=== PATIENT | male | born 2005 | race Caucasian/White ===

== ENCOUNTER 2024-07-14 01:16 | Emergency (ER) | payer OTHER, SELFPAY ==
[2024-07-14 01:16] VITALS: BMI 26.2
[2024-07-14 01:28] VITALS: BP 150/83
[2024-07-14 02:17] VITALS: BP 131/74
--- NOTE | 2024-07-14 02:26 | ED.GENMED ---
History of Present Illness
<DEIDRA Friedman - Last Filed: 07/14/24 04:33>
General
Chief Complaint: Skin Surface Trauma
Source: patient and family
Time Seen by Provider: 07/14/24 02:17
Nursing documentation reviewed up to this point in time: agreed with
History of Present Illness
History of Present Illness:
Pt is a 18 yo M who presents with his mother to the emergency department for a laceration. Pt states that he was ice skating and fell. The laceration is located on the posterior head. The laceration is not actively bleeding but noticeable spots of
dried blood on the back of the patient's shirt. Pt denies LOC, dizziness, BARILLAS, N/V, fever, chills, chest pain, shortness of breath.
Past History
<DEIDRA Friedman - Last Filed: 07/14/24 04:33>
Past History
ED Past Medical History: Other (Migraines)
ED Past Surgical History: None
Social History
Tobacco: Non-smoker
Alcohol: None
Drug: None
Personal: Single
Living: with roommate
Review of Systems
<DEIDRA Friedman - Last Filed: 07/14/24 04:33>
Review of Systems
Allergies reviewed?: Yes
Constitutional: Reports no symptoms
EENT: Reports no symptoms
Respiratory: Reports no symptoms
Cardiac: Reports no symptoms
ABD/GI: Reports no symptoms
Musculoskeletal: Reports no symptoms
Skin: Reports other (laceration posterior head)
Neurological: Reports no symptoms
Phy Exam
<DEIDRA Friedman - Last Filed: 07/14/24 04:33>
General Physical Exam
General Presentation: no apparent distress
General age: appears stated age
General Skin: warm
General Habitus: normal
General Mental: appears intoxicated
General Hydration: appears well hydrated
Cardiovascular Exam
Cardiovascular Exam: regular rate/rhythm
Pulmonary Exam
Pulmonary Exam: lungs clear
Neurological Exam
Neurological Exam: appears intoxicated
Skin Exam
Skin Exam: laceration
Course
<DEIDRA Friedman - Last Filed: 07/14/24 04:33>
Orders/Labs/Results
Orders:
Orders
07/14/24 03:00
CT Head W/o Iv Contrast Urgent
Comment:
Reason For Exam: post head trauma, intoxicated
Vital Signs
Initial and Last Documented VS:
Initial Vital Signs
Temp Pulse Resp BP Pulse Ox
98.2 F 104 20 150/83 99
07/14/24 01:28 07/14/24 01:28 07/14/24 01:28 07/14/24 01:28 07/14/24 01:28
Last Documented Vital Signs
Temp Pulse Resp BP Pulse Ox
98.2 F 104 20 124/75 98
07/14/24 01:28 07/14/24 01:28 07/14/24 01:28 07/14/24 03:00 07/14/24 03:00
<Marilyn Zafar DO - Last Filed: 07/14/24 04:25>
Orders/Labs/Results
Orders:
Orders
07/14/24 03:00
CT Head W/o Iv Contrast Urgent
Comment:
Reason For Exam: post head trauma, intoxicated
Vital Signs
Initial and Last Documented VS:
Initial Vital Signs
Temp Pulse Resp BP Pulse Ox
98.2 F 104 20 150/83 99
07/14/24 01:28 07/14/24 01:28 07/14/24 01:28 07/14/24 01:28 07/14/24 01:28
Last Documented Vital Signs
Temp Pulse Resp BP Pulse Ox
98.2 F 104 20 124/75 98
07/14/24 01:28 07/14/24 01:28 07/14/24 01:28 07/14/24 03:00 07/14/24 03:00
Procedures
<Marilyn Zafar DO - Last Filed: 07/14/24 04:25>
Laceration Closure
Left Occipital:
Status of Wound: clean
Size of Wound in cm: 3
Description of Wound Edges: sharp
Preparation: cleaned with saline and cleaned with Betadine
Anesthesia: 1% Lidocaine with epi and added Na Bicarb to local
Revision/Debridement: routine- no revision
Wound exploration: explored to base- no FB and no tendon involvement
Type of Closure: single layer closure
Skin Closure Material: skin brayden
Number of sutures: 4
<DEIDRA Friedman - Last Filed: 07/14/24 04:33>
*Critical Care Note
Total Time (30-74mins, 75-104mins- exclusive of procedures): Not Applicable
<DO Alice Flores Last Filed: 07/14/24 04:25>
*Radiology
Radiology exam reviewed: radiology read reviewed (CT of the head is unremarkable)
*Pulse Oximetry
Patient hypoxic: no
ED Attending Note
<DEIDRA Friedman - Last Filed: 07/14/24 04:33>
-
Portions of this chart may have been created with voice recognition software.� Occasional wrong word or��sound alike� substitutions may have occurred due to the inherent limitations of voice recognition software.
<Marilyn Zafar DO - Last Filed: 07/14/24 04:25>
ED Attending Note
Patient seen and examined by attending physician: Yes
I performed the substantive portion of visit, reviewed & personally made and approve the management plan that is documented in note by myself or NINFA.: Yes
ED Attending Note:
This is a 18-year-old college student who was brought to the ED by mom after he returned home after being out tonight with friends. He admits to drinking alcohol and was apparently ice-skating, admits to falling several times, struck the back of
his head and is noted to have a laceration occipital scalp. He denies loss of consciousness, denies headache, denies neck nor back pain. He has had no nausea or vomiting, no dizziness nor lightheadedness, no chest nor abdominal pain.
He admits to consumption of alcohol tonight. Denies drug use.
He takes no medicines on a daily basis.
He is not immunized and declines Tdap.
TRAUMA EXAM:
VITAL SIGNS: Vital signs reviewed, cooperative
DISTRESS: 18-year-old male appears his stated age, awake and alert, appears moderately intoxicated but cooperative. In no distress.
EYES: Pupils reactive, no orbital trauma
NOSE: No deformity or epistaxis
FACE AND SCALP: No facial trauma, external canals no blood. There is a 2.5 cm laceration occipital scalp, subcutaneous depth. No active bleeding. Minimal local tenderness to palpation.
NECK: Supple, no midline bony tenderness, full cervical range of motion without difficulty nor pain.
BACK: Back nontender, pelvis stable to compression
RESPIRATORY: No distress, breath sounds normal, no tender chest wall
CARDIAC: No murmur, pulses equal and strong
ABDOMEN: Soft nontender bowel sounds normal
SKIN: Warm and dry, normal color. Good turgor.
EXTREMITIES: Nontender
NEUROLOGICAL: Alert, oriented x 3, no motor deficits.
PSYCH: Moderately intoxicated, cooperative.
Due to acute intoxication, coupled with head injury will check CT of the head assess for potential intracranial injury.
Patient/mom declined Tdap.
Scalp laceration will require staple repair.
Discharge Plan
Departure
Patient Disposition: Home (Routine Discharge)
Date of Disposition: 07/14/24
Time of Disposition: 04:17
Patient with high blood pressure during this ER visit?: No
Condition: Good
Discharge Problem:
Laceration of occipital region of scalp
Instructions: Laceration Repair With [place] (DC)
Prescriptions:
No Action
No Current Medications
0
Referrals:
Armond Rich MD [Family Provider] - Follow up in 5-7 days
Interventions
Interventions:
*Risk Screen - Suicide Last Done: 07/14/24 01:28
*General Assessment Last Done: 07/14/24 01:28
*Neglect/Abuse Screening Last Done: 07/14/24 01:28
*ED COVID-19 Vaccine History Last Done: 07/14/24 01:33
ED- Neurological Assessment Last Done: 07/14/24 02:21
ED-Skin Assessment Last Done: 07/14/24 02:21
Discharge Date and Time
Print Language: CYMRO
[2024-07-14 03:00] VITALS: BP 124/75
[2024-07-14 04:34] VITALS: BP 119/72
== END 2024-07-14 04:36 | disposition home or self-care (01) ==
LOC: EMR 01:16
PROVIDERS: EMERGENCY PHYSICIAN Emergency Medicine; FAMILY PHYSICIAN Family Medicine
DX: S01.01XA Laceration without foreign body of scalp, initial encounter (principal); V00.211A Fall from ice-skates, initial encounter; Y93.21 Activity, ice skating
CPT/HCPCS: 99284; 12002; 70450

== ENCOUNTER 2024-08-19 14:29 | Emergency (ER) | payer OTHER, SELFPAY ==
[2024-08-19 14:39] VITALS: BP 149/96
[2024-08-19 14:59] LABS: % Basophils 0.2 % (0-2); % Eosinophils 0.6 % (0-6); % Immature Granulocytes 0.2 % (0-0.5); % Lymphocytes 10.7 % (20.5-51.1); % Neutrophils 80.3 % (42.2-75.2); Absolute Eosinophils 0.1 10^3/uL (0-0.7); Absolute Monocytes 0.7 10^3/uL (0.1-0.6); Absolute Neutrophils 7.1 10^3/uL (1.4-6.5); Hematocrit 44.6 % (39.0-52.0); Hemoglobin 15.4 g/dL (13.0-18.0); Mean Corp Hgb Conc. 34.5 g/dL (33.0-37.0); Mean Corpuscular Volume 89.9 fL (80.0-94.0); Mean Platelet Volume 9.4 fL (7.4-10.4); Nucleated Red Blood Cells % 0 % (-); Platelet Count 228 10^3/uL (130-400); Red Blood Cell Count 4.96 10^6/uL (4.70-6.10); White Blood Cell Count 8.9 10^3/uL (4.8-10.8)
[2024-08-19 15:19] LABS: ALT (SGPT) 20 U/L (0-50); AST (SGOT) 26 U/L (17-59); Albumin 4.8 g/dl (3.5-5.0); Alkaline Phosphatase 105 U/L (38-126); Blood Urea Nitrogen 12 mg/dl (9-20); Calcium 9.4 mg/dl (8.4-10.2); Carbon Dioxide 25 mmol/L (22-30); Chloride 100 mmol/L (98-107); Glucose 99 mg/dl (70-99); Potassium 4.5 mmol/L (3.5-5.1); Sodium 138 mmol/L (135-145); Total Bilirubin 0.6 mg/dl (0.2-1.3); Total Protein 7.4 g/dl (6.3-8.2); eGFR > 60.00
--- NOTE | 2024-08-19 18:15 | ED.SKININJ ---
HPI-Injury
General
Chief Complaint: Skin Problem
Time Seen by Provider: 08/19/24 18:03
Past History
Past History
ED Past Medical History: Other (Migraines)
ED Past Surgical History: None
Social History
Tobacco: Non-smoker
Alcohol: None
Drug: None
Personal: Single
Living: with roommate
Skin Exam
Abrasion
Right Fourth Finger:
Description of abrasion: superfical/clean
Course
Orders/Labs/Results
Orders:
Orders
08/19/24 14:38
Hand, Right 3 View [CR Hand - Right Min 3 Views] Urgent
Comment:
Reason For Exam: redness to right ring finger
08/19/24 14:49
Complete Blood Count/With Diff Urgent
Comprehensive Metabolic Panel Urgent
08/19/24 18:14
Cephalexin Monohydrate [Keflex] 500 mg PO NOW STA
Abnormal Lab Results
08/19/24
14:49
Absolute Neuts (auto) 7.1 H 10^3/uL
(1.4-6.5)
Absolute Lymphs (auto) 1.0 L 10^3/uL
(1.2-3.4)
Absolute Monos (auto) 0.7 H 10^3/uL
(0.1-0.6)
Neutrophils % 80.3 H %
(42.2-75.2)
Lymphocytes % 10.7 L %
(20.5-51.1)
08/19/24 14:49
08/19/24 14:49
Vital Signs
Initial and Last Documented VS:
Initial Vital Signs
Temp Pulse Resp BP Pulse Ox
99.2 F 112 18 149/96 98
08/19/24 14:39 08/19/24 14:39 08/19/24 14:39 08/19/24 14:39 08/19/24 14:39
Last Documented Vital Signs
Temp Pulse Resp BP Pulse Ox
99.2 F 112 18 149/96 98
08/19/24 14:39 08/19/24 14:39 08/19/24 14:39 08/19/24 14:39 08/19/24 14:39
ED Attending Note
-
Portions of this chart may have been created with voice recognition software.� Occasional wrong word or��sound alike� substitutions may have occurred due to the inherent limitations of voice recognition software.
Discharge Plan
Departure
Patient Disposition: Home (Routine Discharge)
Date of Disposition: 08/19/24
Time of Disposition: 18:15
Patient with high blood pressure during this ER visit?: No
Condition: Good
Covid-19: Not Applicable
Discharge Problem:
Cellulitis of finger
Instructions: Wound Care (DC), Cellulitis (Skin Infection), Adult (DC)
Prescriptions:
New
cephalexin 500 mg capsule
500 mg PO Q6H 7 Days Qty: 28 0RF
Activity Restrictions/Additional Instructions:
Follow up with your family doctor. Return to the emergency department immediately for fever/chills, increasing pain/redness/swelling to finger, or for any further concerns. Warm soaks to finger 15-20 minutes at a time, 4-5 times daily.
Interventions
Interventions:
*Risk Screen - Suicide Last Done: 08/19/24 14:39
*General Assessment Last Done: 08/19/24 14:39
*Neglect/Abuse Screening Last Done: 08/19/24 18:34
ED- Fall Risk Assessment Last Done: 08/19/24 18:34
*ED COVID-19 Vaccine History Last Done: 08/19/24 18:34
*Nursing Disposition Last Done: 08/19/24 18:34
ED-Skin Assessment Last Done: 08/19/24 18:34
Discharge Date and Time
Discharge Date/Time: 08/19/24 18:35
Print Language: GREENLANDIC
--- NOTE | 2024-08-19 18:18 | ED.SKININJ ---
HPI-Injury
General
Chief Complaint: Skin Problem
Source: patient
Exam Limitations: none
Time Seen by Provider: 08/19/24 18:03
Nursing documentation reviewed up to this point in time: agreed with
History of Present Illness-Injury
Is this injury a work related problem?: No
Is pt an associate of [facility]/[place]?: No
Initial Injury comments:
Patient states he scraped his finger last PM, unsure on what surface. Today he notes increasing redness and swelling. No drainage. Full ROM to finger. Brought to ED by mother for eval
Past History
Past History
ED Past Medical History: Other (Migraines)
ED Past Surgical History: None
Social History
Tobacco: Non-smoker
Alcohol: None
Drug: None
Personal: Single
Living: with roommate
Review of Systems
Review of Systems
Allergies reviewed?: Yes
All Other Systems: ROS reviewed and negative except as documented in HPI and ROS
Constitutional: Reports no symptoms
Musculoskeletal: Reports no symptoms
Skin: Reports other (erythema and soft tissue swelling right dorsal 4th finger.)
Neurological: Reports no symptoms
Psychiatric: Reports no symptoms
Phy Exam
General Physical Exam
General Presentation: well appearing and no apparent distress
General age: appears stated age
General Skin: warm and dry
General Habitus: normal
General Mental: alert
General Hydration: appears well hydrated
Musculoskeletal Exam
Musculoskeletal Exam: full ROM and neuro vasc intact
Skin Exam
Skin Exam: warm/dry, no rash and other (small abraded area on right PIP. NO evidence of abscess. FUll ROM to finger. No evidence of tendon injury. No drainage.)
Psychiatric Exam
Psychiatric Exam: normal mood/affect
Course
Orders/Labs/Results
Orders:
Orders
08/19/24 14:38
Hand, Right 3 View [CR Hand - Right Min 3 Views] Urgent
Comment:
Reason For Exam: redness to right ring finger
08/19/24 14:49
Complete Blood Count/With Diff Urgent
Comprehensive Metabolic Panel Urgent
08/19/24 18:14
Cephalexin Monohydrate [Keflex] 500 mg PO NOW STA
Abnormal Lab Results
08/19/24
14:49
Absolute Neuts (auto) 7.1 H 10^3/uL
(1.4-6.5)
Absolute Lymphs (auto) 1.0 L 10^3/uL
(1.2-3.4)
Absolute Monos (auto) 0.7 H 10^3/uL
(0.1-0.6)
Neutrophils % 80.3 H %
(42.2-75.2)
Lymphocytes % 10.7 L %
(20.5-51.1)
08/19/24 14:49
08/19/24 14:49
Vital Signs
Initial and Last Documented VS:
Initial Vital Signs
Temp Pulse Resp BP Pulse Ox
99.2 F 112 18 149/96 98
08/19/24 14:39 08/19/24 14:39 08/19/24 14:39 08/19/24 14:39 08/19/24 14:39
Last Documented Vital Signs
Temp Pulse Resp BP Pulse Ox
99.2 F 112 18 149/96 98
08/19/24 14:39 08/19/24 14:39 08/19/24 14:39 08/19/24 14:39 08/19/24 14:39
*Radiology
Radiology exam reviewed: radiology read reviewed
*Critical Care Note
Total Time (30-74mins, 75-104mins- exclusive of procedures): Not Applicable
ED Attending Note
-
Portions of this chart may have been created with voice recognition software.� Occasional wrong word or��sound alike� substitutions may have occurred due to the inherent limitations of voice recognition software.
Discharge Plan
Departure
Patient Disposition: Home (Routine Discharge)
Date of Disposition: 08/19/24
Time of Disposition: 18:15
Patient with high blood pressure during this ER visit?: No
Condition: Good
Covid-19: Not Applicable
Discharge Problem:
Cellulitis of finger
Instructions: Wound Care (DC), Cellulitis (Skin Infection), Adult (DC)
Prescriptions:
New
cephalexin 500 mg capsule
500 mg PO Q6H 7 Days Qty: 28 0RF
Activity Restrictions/Additional Instructions:
Follow up with your family doctor. Return to the emergency department immediately for fever/chills, increasing pain/redness/swelling to finger, or for any further concerns. Warm soaks to finger 15-20 minutes at a time, 4-5 times daily.
Interventions
Interventions:
*Risk Screen - Suicide Last Done: 08/19/24 14:39
*General Assessment Last Done: 08/19/24 14:39
*ED COVID-19 Vaccine History Last Done: 08/19/24 14:39
Discharge Date and Time
Print Language: FRENCH
[2024-08-19] MEDS: KEFLEX 500 MG PO (18:30)
== END 2024-08-19 18:35 | disposition home or self-care (01) ==
LOC: EMR 14:29
PROVIDERS: Emergency Medicine; EMERGENCY PHYSICIAN Emergency Medicine
DX: L03.011 Cellulitis of right finger (principal)
CPT/HCPCS: 99284; 73130; 80053; 85025

== ENCOUNTER → 2024-08-24 13:46 | Outpatient (REF) | payer OTHER, SELFPAY | LOC: HWRAD 13:46 | PROVIDERS: ATTENDING PHYSICIAN Physician Assistant | DX: K09.9 Cyst of oral region, unspecified (principal) | CPT/HCPCS: 76536 ==

== ENCOUNTER 2024-10-13 14:29 | Emergency (ER) | payer OTHER, SELFPAY ==
[2024-10-13 14:34] VITALS: BP 160/91
--- NOTE | 2024-10-13 15:18 | ED.GENMED ---
History of Present Illness
General
Chief Complaint: Skin Problem
Source: patient
Exam Limitations: none
Time Seen by Provider: 10/13/24 14:58
Nursing documentation reviewed up to this point in time: agreed with
History of Present Illness
History of Present Illness:
18-year-old male presents emergency ferment due to pain in right jaw and right neck. Patient went to the oral surgeon yesterday to have a cyst removed, who did not feel any surgery was necessary. He began having more pain today in his right lower
jaw and neck pain, so he came to the emergency department.
Past History
Past History
ED Past Medical History: Other (Migraines)
ED Past Surgical History: None
Social History
Tobacco: Non-smoker
Alcohol: None
Drug: None
Personal: Single
Living: with roommate
Review of Systems
Review of Systems
Allergies reviewed?: Yes
All Other Systems: Not applicable
Constitutional: Reports no symptoms
EENT: Reports mouth pain
Respiratory: Reports no symptoms
Cardiac: Reports no symptoms
ABD/GI: Reports no symptoms
: Reports no symptoms
Musculoskeletal: Reports neck pain
Skin: Reports no symptoms
Neurological: Reports no symptoms
Endocrine: Reports no symptoms
Hematologic/Lymphatic: Reports no symptoms
Psychiatric: Reports no symptoms
Phy Exam
Physical Exam
Physical Exam:
Physical Exam
General: no apparent distress, not acutely ill
Neck: supple. no meningeal signs. normal posterior pharynx
Heart: s1/s2 regular rate and rhythm, no murmur. equal radial
pulses.
HEENT: Pupils equal round reactive to light, EOMI
Lungs: no acute respiratory distress. clear bilaterally
Abdomen: normal bowel sounds. not tender. no CVAT
Neuro: alert and oriented. no focal neurological deficits cranial nerves II through XII intact
Skin: no rash
Psychiatric: well kept. interactive and cooperative
Extremities: no edema. no calf tenderness. negative homans. good distal pulses
Course
Orders/Labs/Results
Orders:
Orders
10/13/24 15:11
CT Neck With Iv Contrast Urgent
Comment:
Reason For Exam: right jaw pain, neck pain
IV Insert/Care/Rem.- Treatment PRN
10/13/24 15:40
Complete Blood Count/With Diff Urgent
Comprehensive Metabolic Panel Urgent
Abnormal Lab Results
10/13/24
15:40
MCH 31.5 H pg
(27.0-31.0)
Absolute Neuts (auto) 6.9 H 10^3/uL
(1.4-6.5)
Neutrophils % 78.5 H %
(42.2-75.2)
Lymphocytes % 15.8 L %
(20.5-51.1)
Glucose 108 H mg/dl
(70-99)
10/13/24 15:40
10/13/24 15:40
Vital Signs
Initial and Last Documented VS:
Initial Vital Signs
Temp Pulse Resp BP Pulse Ox
98.4 F 107 18 160/91 100
10/13/24 14:34 10/13/24 14:34 10/13/24 14:34 10/13/24 14:34 10/13/24 14:34
Last Documented Vital Signs
Temp Pulse Resp BP Pulse Ox
98.4 F 107 18 160/91 100
10/13/24 14:34 10/13/24 14:34 10/13/24 14:34 10/13/24 14:34 10/13/24 14:34
MDM/Problems Addressed
Differential Diagnosis Includes:
Deep space abscess, dental infection
MDM/Problems Addressed:
18-year-old male with right jaw pain, unclear etiology. No signs of deep space infection. Stable for discharge. Follow-up with primary care. Return precautions given.
*Radiology
Radiology exam reviewed: radiology read reviewed (CT neck with IV contrast no acute findings, mucous retention cyst)
*Pulse Oximetry
Patient hypoxic: no
*Critical Care Note
Total Time (30-74mins, 75-104mins- exclusive of procedures): Not Applicable
Patient Management
Social determinants of health affecting care: Living situation and Strong social support
Escalation/DeEscalation of care consider admission/obs:
admit not indicated
ED Attending Note
-
Portions of this chart may have been created with voice recognition software.� Occasional wrong word or��sound alike� substitutions may have occurred due to the inherent limitations of voice recognition software.
Discharge Plan
Departure
Patient Disposition: Home (Routine Discharge)
Date of Disposition: 10/13/24
Time of Disposition: 18:09
Patient with high blood pressure during this ER visit?: Yes
Condition: Good
Discharge Problem:
Jaw pain, Mucous retention cyst of maxillary sinus
Instructions: Neck pain, Mucous Retention Cyst, BLOOD PRESSURE
Prescriptions:
No Action
cephalexin 500 mg capsule
500 mg PO Q6H 7 Days Qty: 28 0RF
Referrals:
Tex Jasmine MD [Active] - Call in 1-3 days for appt
UNKNOWN - PT DOES,NOT KNOW [Family Provider] -
Activity Restrictions/Additional Instructions:
Return for any concerns. Follow up with your dentist and ENT. No infection was found on your CT scan.
Interventions
Interventions:
*Risk Screen - Suicide Last Done: 10/13/24 14:34
*General Assessment Last Done: 10/13/24 14:34
*Neglect/Abuse Screening Last Done: 10/13/24 14:34
*ED COVID-19 Vaccine History Last Done: 10/13/24 14:34
ED-Skin Assessment Last Done: 02/25/25 14:52
Discharge Date and Time
Print Language: IRAQI
[2024-10-13 15:49] LABS: % Basophils 0.1 % (0-2); % Eosinophils 0.5 % (0-6); % Immature Granulocytes 0.2 % (0-0.5); % Lymphocytes 15.8 % (20.5-51.1); % Monocytes 4.9 % (1.7-9.3); % Neutrophils 78.5 % (42.2-75.2); Absolute Lymphocytes 1.4 10^3/uL (1.2-3.4); Absolute Monocytes 0.4 10^3/uL (0.1-0.6); Absolute Neutrophils 6.9 10^3/uL (1.4-6.5); Hematocrit 45.1 % (39.0-52.0); Hemoglobin 15.3 g/dL (13.0-18.0); Mean Corp Hgb Conc. 33.9 g/dL (33.0-37.0); Mean Corpuscular Hgb 31.5 pg (27.0-31.0); Mean Corpuscular Volume 92.8 fL (80.0-94.0); Mean Platelet Volume 9.4 fL (7.4-10.4); Nucleated Red Blood Cells % 0 % (-); Platelet Count 225 10^3/uL (130-400); Red Blood Cell Count 4.86 10^6/uL (4.70-6.10); Red Cell Dist. Width 12.3 % (11.5-14.5); White Blood Cell Count 8.8 10^3/uL (4.8-10.8)
[2024-10-13 16:04] LABS: ALT (SGPT) 32 U/L (0-50); AST (SGOT) 28 U/L (17-59); Alkaline Phosphatase 100 U/L (38-126); Blood Urea Nitrogen 16 mg/dl (9-20); Calcium 9.6 mg/dl (8.4-10.2); Carbon Dioxide 28 mmol/L (22-30); Chloride 100 mmol/L (98-107); Glucose 108 mg/dl (70-99); Potassium 4.2 mmol/L (3.5-5.1); Sodium 136 mmol/L (135-145); Total Protein 7.3 g/dl (6.3-8.2); eGFR > 60.00
== END 2024-10-13 19:18 | disposition home or self-care (01) ==
LOC: EMR 14:29
PROVIDERS: EMERGENCY PHYSICIAN Emergency Medicine
DX: J34.1 Cyst and mucocele of nose and nasal sinus (principal); R68.84 Jaw pain; M54.2 Cervicalgia
CPT/HCPCS: 99284; 70491; 80053; 85025; Q9967